=== PATIENT | female | born 1960 | race Hispanic/Latino ===

== ENCOUNTER 2016-09-08 17:09 | Emergency (ER) | payer MEDICARE, MEDICAID ==
[2016-09-08 17:25] VITALS: BMI 23.8
[2016-09-08 17:26] VITALS: BP 134/73; PULSE 106; RESP 19; TEMP 98.5; O2SAT 97
--- NOTE | 2016-09-08 18:58 | ED PDOC ---
Arrival/HPI - General Historian: Patient - History of Present Illness Time/Duration: Prior to Arrival, < week Symptom Onset: Sudden Symptom Course: Worsening Quality: Throbbing Severity Level: 10 Context: Walking <Reji Kern - Last Filed: 09/08/16 18:49> <Kayleen Thomas - Last Filed: 09/08/16 19:37> - General Chief Complaint: Lower Extremity Problem/Injury Time Seen by Provider: 09/08/16 17:40 - History of Present Illness Narrative History of Present Illness (Text): 09/08/16 18:50 This is a 56 year old female presenting to the fast track ED for right ankle pain. The patient states that she tripped going down the stairs and sustained an inversion and hyperplantarflexion injury. The patient was able to ambulate without issue following the injury. The patient was ambulating this morning and noticed increased pain. The patient reports taking hydrocodone at home for the pain without relief. The patient reports decreased ROM and ability to bear weight currently. The patient denies numbness and tingling about the extremity. (Reji Kern) Past Medical History - Provider Review Nursing Documentation Reviewed: Yes - Travel History Have you recently traveled outside [place] w/in the past 3 mons?: No - Past History Past History: Non-Contributing - Reproductive Menopause: Yes - Cardiac Hx Cardiac Disorders: Yes - Pulmonary Hx Respiratory Disorders: No - Neurological Hx Neurological Disorder: Yes Other/Comment: Neuropathy - HEENT Hx HEENT Disorder: Yes Hx Cataracts: Yes - Renal Hx Renal Disorder: No - Endocrine/Metabolic Hx Endocrine Disorders: Yes Hx Hyperthyroidism: Yes - Hematological/Oncological Hx Blood Disorders: No - Integumentary Hx Dermatological Disorder: No - Musculoskeletal/Rheumatological Hx Musculoskeletal Disorders: No - Gastrointestinal Hx Gastrointestinal Disorders: No - Genitourinary/Gynecological Hx Genitourinary Disorders: No - Psychiatric Hx Psychophysiologic Disorder: Yes Hx Depression: Yes Hx Substance Use: No - Surgical History Hx Appendectomy: Yes Hx Cataract Extraction: Yes Hx Tonsillectomy: Yes Hx Tubal Ligation: Yes Other/Comment: Sinus Surgery. Reconstructive Inner Ear (Right). Eye (Left) <Reji Kern - Last Filed: 09/08/16 18:49> Family/Social History - Physician Review Nursing Documentation Reviewed: Yes Family/Social History: No Known Family HX Smoking Status: Current Some Days Smoker Hx Alcohol Use: Yes Frequency of alcohol use: Socially Hx Substance Use: No <Reji Kern - Last Filed: 09/08/16 18:49> Allergies/Home Meds <Reji Kern - Last Filed: 09/08/16 18:49> <MarthaTyroneoli - Last Filed: 09/08/16 19:37> Allergies/Adverse Reactions: Allergies ciprofloxacin [From Cipro] Allergy (Verified 09/08/16 17:37) SHORTNESS OF BREATH ciprofloxacin HCl [From Cipro] Allergy (Verified 09/08/16 17:37) SHORTNESS OF BREATH pravastatin sodium [From Pravachol] Allergy (Verified 09/08/16 17:37) SHORTNESS OF BREATH Home Medications: Home Meds Medication Instructions Recorded Confirmed Atorvastatin [Lipitor] 20 mg PO DAILY 09/08/16 09/08/16 Gabapentin [Neurontin] 600 mcg PO DAILY 09/08/16 09/08/16 Levothyroxine [Synthroid] 125 mcg PO DAILY 09/08/16 09/08/16 Pramipexole [Mirapex] 1 mg PO DAILY 09/08/16 09/08/16 Sertraline HCl 100 mg PO DAILY 09/08/16 09/08/16 Temazepam [Restoril] 15 mg PO DAILY 09/08/16 09/08/16 Review of Systems - Physician Review All systems were reviewed & negative as marked: Yes - Review of Systems Constitutional: absent: Fatigue, Weight Change Eyes: absent: Vision Changes, Photophobia Respiratory: absent: SOB, Cough Cardiovascular: absent: Chest Pain, Palpitations, Syncope Gastrointestinal: absent: Abdominal Pain, Nausea, Vomiting Genitourinary Female: absent: Dysuria Musculoskeletal: Arthralgias, Joint Swelling. absent: Back Pain, Neck Pain, Myalgias Skin: absent: Rash, Pruritis Neurological: absent: Headache Endocrine: absent: Diaphoresis Hemo/Lymphatic: absent: Adenopathy <Reji Kern - Last Filed: 09/08/16 18:49> Physical Exam Vital Signs Reviewed: Yes Temperature: Afebrile Blood Pressure: Normal Pulse: Tachycardic Respiratory Rate: Normal Appearance: Positive for: Well-Appearing Pain Distress: Moderate Mental Status: Positive for: Alert and Oriented X 3 - Systems Exam Head: Present: Atraumatic, Normocephalic Pupils: Present: PERRL Extroacular Muscles: Present: EOMI Conjunctiva: Present: Normal Mouth: Present: Moist Mucous Membranes Neck: Present: Normal Range of Motion. No: Lymphadenopathy Respiratory/Chest: Present: Clear to Auscultation, Good Air Exchange. No: Respiratory Distress, Accessory Muscle Use Cardiovascular: Present: Regular Rate and Rhythm, Normal S1, S2. No: Murmurs Abdomen: Present: Normal Bowel Sounds. No: Tenderness, Distention, Peritoneal Signs Upper Extremity: Present: Normal Inspection. No: Cyanosis, Edema Lower Extremity: Present: Normal Inspection, NORMAL PULSES, Tenderness (lateral maleolus, ATFL region, no tenderness medial maleolus, navicular, head of the 5th metatarsal, cuboid, calcaneous), Swelling (minimal swelling about lateral mal), Neurovascularly Intact. No: Edema, CALF TENDERNESS, Cyanosis, Normal ROM (intact active and passive ROM, decreased 2/2 to pain), Isaiah's Sign, Erythema, Deformity, Temperature Abnormalties Neurological: Present: GCS=15, CN II-XII Intact Skin: Present: Warm, Dry, Normal Color. No: Rashes Psychiatric: Present: Alert, Oriented x 3 <Reji Kern - Last Filed: 09/08/16 18:49> Vital Signs Temp Pulse Resp BP Pulse Ox 09/08/16 17:10 98.5 F 106 H 19 134/73 97 Medical Decision Making <Reji Kern - Last Filed: 09/08/16 18:49> <Kayleen Thomas - Last Filed: 09/08/16 19:37> ED Course and Treatment: 09/08/16 19:08 Impression: This is a 56 year old female presenting to the fast track ED for right ankle pain. The patient is clinically stable. She appears in moderate pain. Minimal swelling about the ankle. XR will be preformed to r/o fracture Differential: Ankle Sprain Ankle Fracture Plan: Ankle XR Motrin Prior Visits: None Progress Note: Patient seen and examined. Ankle no ecchymotic, minimal swelling about the lateral mal. The patient takes hydrocodone for chronic pain regularly and appears currently in moderate pain. The patient is pending XR evaluation of her right ankle. 09/08/16 19:33 Patient re-examined. XR Negative. Patient given an air-cast and crutches. The patient was educated on how to use the crutches. She was instructed to use the crutches for modified weight bearing of the Right ankle and to wean as tolerated. She was advised to wean from the ankle brace after 1 week. The patient was given referral to ortho if pain persists. The patient agrees with the discharge plan and was suitably stable for discharge. (Reji Kern) Patient seen and examined with resident. Came up with treatment and disposition plan with resident. The patient is a 56 year old female who comes into the emergency department for evaluation of right ankle pain after a mechanical fall. Additional HPI details as noted by the resident. On physical examination the patient has tenderness with palpation over the lateral malleolus of the right ankle but there is full range of motion to the ankle. x-rays are negative. Patient was placed in an air-cast and will be discharged home with instructions to follow up with specialist in 1-2 days or return to the emergency department if symptoms persist or new concerning symptoms arise. (Kayleen Thomas) - RAD Interpretation Narrative RAD Interpretations (Text): 09/08/16 19:11 no acute fracture or dislocation about the right ankle (Reji Kern) Radiology Orders: 09/08/16 17:40 ANKLE RIGHT 3 VIEWS ROUTINE [RAD] Stat 09/08/16 17:59 FOOT RIGHT 3 VIEWS ROUTINE [RAD] Stat - Medication Orders Current Medication Orders: Discontinued Medications Ibuprofen (Motrin Tab) 600 mg PO STAT STA Stop: 09/08/16 18:01 Last Admin: 09/08/16 18:11 Dose: 600 MG MAR Pain/Vitals Document 09/08/16 18:11 OCS (Rec: 09/08/16 18:12 OCS [id number]) Pain Reassessment Is This A Pain ReAssessment? Yes Sleep Is patient sleeping during reassessment? No Presence of Pain Presence of Pain Yes Pain Scale Used Pain Scale Used Numeric Location Left, Right or Bilateral Right Pain Location Body Site Ankle Description Sharp Intensity 10 Scale Used Numeric Pain Behavior Irritability Aggravating Factors ADL's Aggravating Factors ADL's - Scribe Statement The provider has reviewed the documentation as recorded by the Scribe <Kayleen Thomas - Last Filed: 09/08/16 19:37> Disposition/Present on Arrival - Present on Arrival Any Indicators Present on Arrival: No History of DVT/PE: No History of Uncontrolled Diabetes: No Urinary Catheter: No History of Decub. Ulcer: No History Surgical Site Infection Following: None - Disposition Have Diagnosis and Disposition been Completed?: Yes Disposition Time: 19:00 Patient Plan: Discharge <Reji Kern - Last Filed: 09/08/16 18:49> <Tyrone Thomasoli - Last Filed: 09/08/16 19:37> - Disposition Diagnosis: Ankle sprain Disposition: HOME/ ROUTINE Patient Problems: Current Active Problems Problem Status Diagnosed Ankle sprain Acute Discharge Instructions (ExitCare): Ankle Sprain (ED), Ankle Exercises (GEN), Crutch Instructions (ED) Print Language: ARMENIAN Additional Instructions: 1.) Weight bearing as tolerated 2.) Maintain air-cast x1 week and wean out 3.) Anti-inflammatory medications in accordance with prescription (naproxed 500mg by mouth every 12 hours x 2 weeks) 4.) Ice and elevate ankle 5.) Follow up with PMD within 48 hours 6.) If pain does not improve follow up with orthopedics 7.) If symptoms return or worsen, please return to the ED for evaluation Prescriptions: Naproxen 500 mg PO Q12 #30 tab Referrals: Sathya Sena MD [Staff Provider] - Follow up with primary [facility] [Outside] - Follow up with primary
--- NOTE | 2016-09-09 09:30 | RAD ---
PROCEDURE: Right Foot Radiographs. HISTORY: twisted R ankle; ttp at base of 5th MT COMPARISON: None. FINDINGS: BONES: Normal. No fracture. JOINTS: Normal. SOFT TISSUES: Normal. OTHER FINDINGS: None. IMPRESSION: Normal right foot radiographs.
--- NOTE | 2016-09-09 09:31 | RAD ---
PROCEDURE: Right Ankle Radiographs. HISTORY: ankle pain COMPARISON: None FINDINGS: BONES: Normal. No fracture. JOINTS: Normal. No osteoarthritis. Ankle mortise maintained. Talar dome intact SOFT TISSUES: Normal. OTHER FINDINGS: None. IMPRESSION: Normal right ankle radiographs.
== END 2016-09-08 19:43 | disposition home or self-care (01) ==
LOC: ED 17:09
DX: S93.401A Sprain of unspecified ligament of right ankle, initial encounter (principal); W10.8XXA Fall (on) (from) other stairs and steps, initial encounter; Y93.89 Activity, other specified; Y92.89 Other specified places as the place of occurrence of the external cause